=== PATIENT | male | born 1965 | race Caucasian/White ===

== ENCOUNTER 2017-11-27 11:29 | Day surgery (SDC) | payer OTHER, MEDICARE ==
[~2017-11-27 11:29] MED LIST: Lactated Ringers 1,000 ML IV SCH
[2017-11-27] MEDS ORDERED: Propofol 200 MG/20 ML SDV ONE ×2 (12:00→12:09)
[2017-11-27] MEDS ORDERED: fentaNYL 100 MCG/2 ML SDV ONE (12:01)
[2017-11-27 13:19] VITALS: BP 126/78
--- NOTE | 2017-11-28 09:06 | OR ---
PREOPERATIVE DIAGNOSIS: Epigastric pain. POSTOPERATIVE DIAGNOSIS: Epigastric pain. PROCEDURE PERFORMED: Esophagogastroduodenoscopy with antral biopsy. INDICATION: The patient is a 52-year-old male with history of epigastric pain, presents for EGD for further diagnosis. PROCEDURE IN DETAIL: This was done in the endoscopy suite. Sedation was given per Anesthesia. Endoscope was inserted into the pharynx. Esophagus was intubated and traversed into the stomach across the pylorus into the duodenal. First and second portion of the duodenum were normal. Scope was slowly withdrawn. Two antral biopsies were taken for Helicobacter pylori. The scope was then retroflexed. The GE junction was normal. Scope was slowly withdrawn. The remainder of the esophagus was normal. FINAL DIAGNOSIS: Normal esophagogastroduodenoscopy. BKD: 11/27/2017 13:03:22 MODL: 11/27/2017 19:36:38 /[id number]
== END 2017-11-27 13:50 | disposition home or self-care (01) ==
LOC: VM.SDS 11:29
PROVIDERS: ATTEND Surgery
DX: K29.40 Chronic atrophic gastritis without bleeding (principal); F41.1 Generalized anxiety disorder; Z79.899 Other long term (current) drug therapy
CPT/HCPCS: 43239; J2704; J3010; J7120